=== PATIENT | male | born 1995 | race Caucasian/White ===

== ENCOUNTER 2019-01-21 07:58 | Inpatient (IN) ==
[2019-01-21 08:22] LABS: URINE SOURCE VOIDED
[2019-01-21 08:28] LABS: BILIRUBIN URINE NEGATIVE (NEGATIVE); BLOOD URINE NEGATIVE (NEGATIVE); COLOR YELLOW; GLUCOSE URINE NEGATIVE (NEGATIVE); KETONE URINE NEGATIVE (NEGATIVE); LEUKOCYTES URINE NEGATIVE (NEGATIVE); NITRITE URINE NEGATIVE (NEGATIVE); PH URINE 7.5; PROTEIN URINE NEGATIVE (NEGATIVE); SP GRAVITY URINE 1.009; TURBIDITY URINE CLEAR (CLEAR); UROBILINOGEN URINE NORMAL (NORMAL)
[2019-01-21 08:30] LABS: UR EPITHELIAL CELLS <10 /HPF (<10); URINE BACTERIA NEGATIVE /HPF; URINE RBC <10 /HPF (<10); URINE WBC <10 /HPF (<10)
[2019-01-21 08:31] LABS: BASO# 0.04 X1000 (0.0-0.2); BASO% 0.4 % (0.0-0.8); EOS# 0.17 X1000 (0.0-0.7); EOS% 1.6 % (0.0-10.0); HEMATOCRIT 46.2 % (42.0-52.0); HEMOGLOBIN 15.4 g/dL (14.0-18.0); IMM GRAN# 0.02 X1000 (0.0-0.04); IMM GRAN% 0.2 % (0.0-0.5); LYMPH% 21.1 % (20.5-51.1); MCH 24.3 PG (27-31); MCHC 33.3 g/dL (33-37); MONO# 0.72 X1000 (0.11-0.59); MONO% 6.9 % (1.7-9.3); MPV 10.7 FL (7.4-10.4); NEUT# 7.26 X1000 (1.4-6.5); NEUT% 69.8 % (42.2-75.2); PLT 292 X1000 (130-400); RBC 6.33 XMIL (4.7-6.1); RDW 13.7 % (11.5-14.5); WBC 10.41 X1000 (4.8-10.8)
[2019-01-21 08:40] LABS: AGAP 12; ALB/GLOB RATIO 1.6; ALBUMIN 4.7 g/dL (3.5-5.0); ALKALINE PHOSPHATASE 112 U/L (32-122); AMYLASE 48 U/L (20-200); BUN 8 mg/dL (8-22); CALCIUM 9.1 mg/dL (8.8-10.2); CHLORIDE 102 mmol/L (98-107); COSMO 282; CREATININE 0.9 mg/dL (0.7-1.2); ESTIMATED GFR > 60; GLUCOSE 110 mg/dL (70-104); GOT 12 U/L (10-34); GPT 10 U/L (10-44); LIPASE 24 U/L (13-60); POTASSIUM 3.8 mmol/L (3.5-5.1); SODIUM 142 mmol/L (136-145); TCO2 28 mmol/L (25-35); TOTAL BILIRUBIN 0.47 mg/dL (0.20-1.00); TOTAL PROTEIN 7.6 g/dL (6.3-8.3)
[2019-01-21] MEDS ORDERED: TORADOL IV ONE (09:07)
[2019-01-21] MEDS ORDERED: ZOFRAN IV ONE (09:07)
[2019-01-21] MEDS ORDERED: NS 1,000 ML IV ONE (09:07)
--- NOTE | 2019-01-21 09:22 | PROVIDER DOCUMENTATION ---
HPI-Abdominal Pain/GI Problem - General Chief Complaint: Abdominal Pain Stated Complaint: STOMACH PAIN/VOMITING Time Seen by Provider: 01/21/19 09:04 Allergies/Adverse Reactions: Patient Allergies Allergy/AdvReac Type Severity Reaction Status Date / Time cefdinir [From Omnicef] Allergy Intermediate SWELLING Verified 01/21/19 10:08 - History of Present Illness-ABD Nature of Presenting Problems: Patient reports sharp, non-radiating RUQ pain that woke him up at 5am. He also had 4 episodes of vomiting. Denies fever or diarrhea. States he was recently dx'd here with cholelithiasis. Severity in ED: reports: moderate Exposure to sick contacts?: No Dark Stools Present?: reports: none noticed Rectal Bleeding: reports: none Recently seen or treated by another doctor?: Yes Review of Systems - Adult - REVIEW OF SYSTEMS - ADULT Constitutional: reports: no symptoms reported Eyes: reports: no symptoms reported Ears, Nose, Mouth & Throat: reports: no symptoms reported Cardiovascular: reports: no symptoms reported Respiratory: reports: no symptoms reported Gastrointestinal: reports: see HPI Genitourinary: reports: no symptoms reported Musculoskeletal: reports: no symptoms reported Integumentary: reports: no symptoms reported Neurological: reports: no symptoms reported Psychiatric: reports: no symptoms reported Endocrine: reports: no symptoms reported Hematologic/Lymphatic: reports: no symptoms reported Allergic/Immunologic: reports: no symptoms reported All Other Systems: Reviewed and Negative Past History - Adult - PAST MEDICAL HISTORY-ADULT Review of Records: reports: Old Records Reviewed Major Childhood Illnesses: reports: denies history Cardiovascular: reports: denies history Respiratory: reports: denies history Gastrointestinal: reports: denies history Obstetrical/Gynecological: reports: denies history Genitourinary: reports: denies history Musculoskeletal: reports: denies history Neurological: reports: denies history Endocrine/Immune: reports: denies history Other Conditions: reports: denies history - PRIOR SURGERIES/PROCEDURES Surgical/Procedure History: reports: none - IMMUNIZATION STATUS Childhood Immunizations: See Nurse Assessment Flu Vaccine: See Nurse Assessment - FAMILY HISTORY Family History: reviewed, not pertinent Physical Exam-General - PHYSICAL EXAM-ADULT Initial Vital Signs Reviewed: Yes - CONSTITUTIONAL General Appearance: mild distress (due to pain) - EYES Eyes: PERRL/EOMI, pink conjunctivae. negative: scleral icterus - HEAD, EARS, NOSE, MOUTH & THROAT HENMT: normocephalic/atraumatic, moist mucous membranes, normal ENT inspection - NECK Neck: non-tender, full range of motion - RESPIRATORY Respiratory: chest non-tender, lungs clear, normal breath sounds, no pleuratic chest pain, no respiratory distress, no accessory muscle use - CARDIOVASCULAR Cardiovascular: normal peripheral pulses, regular rate, rhythm, no edema - GASTROINTESTINAL (ABDOMEN) Abdominal Exam: normal bowel sounds, guarding (ruq), tenderness (ruq), Osorio's sign. negative: non tender, rigid - LYMPHATIC Lymphatic: no adenopathy, axilla node tender - MUSCULOSKELETAL Back Exam: normal inspection, no CVA tenderness, no vertebral tenderness Extremity: normal range of motion, non-tender, normal inspection, no pedal edema - SKIN Integumentary: normal color, normal turgor, warm/dry. negative: jaundice, purpura, rash - NEUROLOGIC Neurologic: child care associate II-XII nml as tested, grossly normal, no motor/sensory deficits - PSYCHIATRIC Psych/Mental Status: normal mood/affect, normal thought content, normal thought process, oriented x 3 Progress - PLAN OF CARE/RESULTS Progress/Plan/Lab Results: Vital Signs - 8 hr 01/21/19 08:02 Temperature 97.8 F Pulse Rate 86 Respiratory Rate 18 Blood Pressure 158/103 O2 Sat by Pulse Oximetry 99 Laboratory Results - last 24 hr 01/21/19 01/21/19 01/21/19 08:06 08:11 08:11 WBC 10.41 RBC 6.33 H Hgb 15.4 Hct 46.2 MCV 73.0 L MCH 24.3 L MCHC 33.3 RDW Std Deviation 13.7 Plt Count 292 MPV 10.7 H Immature Gran % (Auto) 0.2 Neut % (Auto) 69.8 Lymph % (Auto) 21.1 [place] % (Auto) 6.9 Eos % (Auto) 1.6 Baso % (Auto) 0.4 Immature Gran # (Auto) 0.02 Neut # (Auto) 7.26 H Lymph # (Auto) 2.20 [place] # (Auto) 0.72 H Eos # (Auto) 0.17 Baso # (Auto) 0.04 Sodium 142 Potassium 3.8 Chloride 102 Carbon Dioxide 28 Anion Gap 12 BUN 8 Creatinine 0.9 Estimated GFR/1.73 m2 > 60 BUN/Creatinine Ratio 9 Glucose 110 H Calculated Osmolality 282 Calcium 9.1 Total Bilirubin 0.47 AST 12 ALT 10 Alkaline Phosphatase 112 Total Protein 7.6 Albumin 4.7 Globulin 2.9 Albumin/Globulin Ratio 1.6 Amylase 48 Lipase 24 Urine Source VOIDED Urine Color YELLOW Urine Turbidity CLEAR Urine pH 7.5 Ur Specific [place] 1.009 Urine Protein NEGATIVE Ur Glucose (Stick) NEGATIVE Ur Ketones (Stick) NEGATIVE Urine Blood NEGATIVE Urine Nitrite NEGATIVE Urine Bilirubin NEGATIVE Urobilinogen Dipstick NORMAL Urine Leukocytes NEGATIVE Urine WBC (Auto) <10 Urine RBC (Auto) <10 U Epithel Cells (Auto) <10 Urine Bacteria (Auto) NEGATIVE Orders Category Date Time Status US GB < RUQ (LIMITED) [US] Stat Exams 01/21/19 09:07 Ordered AMYLASE [CHEM] Stat Lab 01/21/19 08:11 Completed CBC WITH DIFF [HEME] Stat Lab 01/21/19 08:11 Completed COMPREHENSIVE METABOLIC PANEL [CHEM] Stat Lab 01/21/19 08:11 Completed LIPASE [CHEM] Stat Lab 01/21/19 08:11 Completed URINALYSIS [URINALYSIS] Stat Lab 01/21/19 08:06 Completed 0.9% Sodium Chloride Inj [Ns] 1,000 ml Med 01/21/19 09:07 Active IV 999 mls/hr Ketorolac [Toradol] Med 01/21/19 09:07 Discontinued 30 mg IV NOW ONE Ondansetron [Zofran] Med 01/21/19 09:07 Discontinued 4 mg IV NOW ONE Abd Pain/Abn Bleeding Stat Oth 01/21/19 08:06 Ordered Result Diagrams: 01/21/19 08:11 01/21/19 08:11 - REASSESSMENT Reassessment #1 Status: improving - CONSULTS/PCP/HOSPITALIST Notification #1 *Consult/PCP/Hospitalist*: Dr. Lorenzana Time Discussed: 12:38 Consult Disposition: Admit Departure - Departure Date of Disposition Decision: 01/21/19 Time of Disposition Decision: 12:38 DIAGNOSIS: Cholecystitis Disposition: ADMITTED INPATIENT 09 Certified Medical Emergency: Emergent Condition: Serious Referrals and Follow-Ups: None,PCP [Primary Care Provider] - - Critical Care Note This patient required my direct & personal management of CC.: Yes Attestation - Physician/ BITA Attestation Patient care was provided by Advanced Practice Provider:: No The physician spent face to face time with patient:: Yes Advanced Practice Provider documentation review:: Supervising physician onsite and consulted in the evaluation and care of this patient. The physician did have a face to face encounter with the patient.
--- NOTE | 2019-01-21 10:11 | Diag Imaging Result Doc PS360 ---
EXAM: US GB < RUQ (LIMITED) 01/21/2019 HISTORY: ruq pain TECHNIQUE: Right upper quadrant ultrasound COMMENT: The visualized portions of the aorta and inferior vena cava are within normal limits. The head and body of the pancreas are within normal limits. The liver is unremarkable. There is antegrade flow in the portal vein. There is no evidence of biliary dilatation the common bile duct measuring 6 mm. There is a 1.8 cm stone in the gallbladder. The gallbladder wall is slightly edematous in appearance and there is a positive sonographic Osorio sign. The right kidney is without evidence of hydronephrosis or mass. IMPRESSION: Cholelithiasis with cholecystitis. Electronically signed by Arsen Reece 01/21/2019 10:09 AM
[2019-01-21] MEDS ORDERED: ZOSYN 3.375 GM in NS 50 ML IV ONE (10:42)
[2019-01-21] MEDS ORDERED: DILAUDID IM STA (12:16)
[2019-01-21] MEDS ORDERED: DILAUDID IV ONE (12:24)
[2019-01-21] MEDS ORDERED: 1/2 NS 1,000 ML IV ONE (13:21)
[2019-01-21] MEDS: MORPHINE IV PRN ×2 (14:47→20:14)
--- NOTE | 2019-01-21 15:23 | HISTORY AND PHYSICAL ---
CHIEF COMPLAINT: Right upper quadrant pain, nausea and vomiting. HISTORY OF PRESENT ILLNESS: Mr. Staples is a 23-year-old gentleman who has had episodes of right upper quadrant pain for the past few months. For the past 5 days it has been especially severe, and this morning at 5 a.m. he was awakened with his worse attack ever. He came to the emergency department, and an ultrasound was done showing acute cholecystitis, there appears to be a stone in the neck of the gallbladder. Mr. Staples has an unremarkable past medical history. He says he has had asthma in the past but he takes no medications currently. He has not had any surgery before. FAMILY HISTORY: Noncontributory. MEDICATIONS: He takes no scheduled medications. ALLERGIES: He is allergic to Omnicef, which swells is face. SOCIAL HISTORY: He is about to start a job at [employer]. REVIEW OF SYSTEMS: Pertinent for the right upper quadrant pain, nausea and vomiting, but no fever. All of the subsystems are negative. PHYSICAL EXAMINATION: VITAL SIGNS: He is afebrile. Heart rate of 60, blood pressure 138/100, respiratory rate is 20. NECK: No cervical adenopathy. No thyroid masses are palpated. LUNGS: Lung sounds clear. HEART: Regular rate and rhythm. ABDOMEN: Soft. He has a positive Osorio's sign. EXTREMITIES: He does have multiple mosquito bite scars on his ankles. He has normal dorsalis pedis pulses. No peripheral edema. NEUROLOGIC: He is awake and alert. DIAGNOSTICS AND LABORATORIES: White count is 10,400, hemoglobin 15.4. LFTs are normal. His ultrasound shows a thickened gallbladder wall with a large stone. ASSESSMENT: Acute calculous cholecystitis. PLAN: I will plan to proceed with a laparoscopic cholecystectomy today. I have discussed the procedure and the benefits and risks. He understands and wants to proceed. cc: Francisco Lorenzana MD
[2019-01-21] MEDS ORDERED: LR 1,000 ML ONE (17:15)
[2019-01-21] MEDS ORDERED: SODIUM CHLORIDE 0.9% ONE (17:15)
[2019-01-21] MEDS ORDERED: MARCAINE 0.25% PF/EPI 1:200,000 ONE (17:15)
[2019-01-21] MEDS ORDERED: ZOSYN 3.375 GM in NS 50 ML IV SCH (18:30)
--- NOTE | 2019-01-21 18:38 | Diag Imaging Result Doc PS360 ---
OPERATIVE CHOLANGIOGRAM - 01/21/2019 INDICATION: CHOLECYSTITIS TECHNIQUE: The exam was performed by the patient's surgeon. Two images were obtained. COMPARISON: None FINDINGS: Contrast was infused into the cystic duct. This outlines a normal common bile duct. No stricture or filling defect. IMPRESSION: No complication. Electronically signed by Jeffrey Holt 01/21/2019 6:35 PM
[2019-01-21] MEDS ORDERED: ZOFRAN IV PRN (19:55)
[2019-01-21] MEDS: NORCO-7.5 PO PRN (21:42)
--- NOTE | 2019-01-22 00:19 | OPERATIVE NOTE ---
PROCEDURE DATE: 01/21/2019 PROCEDURE: Laparoscopic cholecystectomy with operative cholangiogram. SURGEON: Francisco Lorenzana MD REAL ESTATE CLOSING COORDINATOR: Marilee. PREOPERATIVE DIAGNOSIS: Acute and chronic calculous cholecystitis. POSTOPERATIVE DIAGNOSIS: Acute and chronic calculous cholecystitis. FINDINGS: The cholangiogram revealed a small common duct, but there was flow in the duodenum. No intraluminal filling defects were seen. DESCRIPTION OF PROCEDURE: After satisfactory general endotracheal anesthesia was achieved, the abdomen was prepped and draped in a sterile fashion. We anesthetized the skin at the base of the umbilicus and incised the skin. We carried our incision down to the fascia, scored the fascia and introduced an 11 trocar Optiview technique into the abdominal cavity. We insufflated through this trocar. Under direct visualization, we introduced a 5 trocar in midclavicular line, a 5 trocar near the anterior axillary line and an 11 mm trocar in the midepigastrium. We placed the patient in reverse Trendelenburg and turned him to the left. We grasped the fundus of the gallbladder, reflected it cephalad and began dissection at the triangle of [place]ot. We identified the cystic duct. We clipped it near its junction with the gallbladder. We incised the cystic duct and introduced a Brittany catheter. We shot the cholangiogram, and the findings above were noted. We then removed the cholangiogram catheter, clipped the cystic duct on the opposite side with a cystic ductotomy x2 and transected the cystic duct. The cystic artery was identified and clipped proximally x2, distally x1 and divided. The branch appeared to be present. We clipped it proximally x2, distally x1 and divided it. We then used the cautery spatula to dissect the gallbladder away from the liver. There was a lot of edema in the wall. We continued to dissect it until the gallbladder was completely freed from the liver. We then changed the videolaparoscope to the midepigastric trocar. We introduced an EndoCatch and placed the gallbladder within the bag. We delivered the gallbladder out of the abdominal cavity through the umbilical trocar site, after enlarging the fascial incision somewhat. We used a [place]-Sammie wound closure for the epigastric trocar site. We looked back. Hemostasis was satisfactory. We then desufflated and removed our trocars. We closed the fascia at the umbilicus under direct visualization with 2-0 Polysorb fascial stitches. We then closed the skin at each incision with 4-0 Polysorb subcuticular stitches. Sterile OpSite were applied. He tolerated it well and was sent to the recovery room in satisfactory condition. cc: Francisco Lorenzana MD
[2019-01-22] MEDS: MORPHINE IV PRN ×2 (03:41→09:58)
[2019-01-22] MEDS: NORCO-7.5 PO PRN ×2 (04:47→12:15)
[2019-01-22 08:54] VITALS: BP 137/99
--- NOTE | 2019-01-22 17:11 | GENERAL SURGERY PROGRESS NOTE ---
DATE: 01/22/2019 SUBJECTIVE: Mr. Staples is afebrile. Heart rate 67, blood pressure 137/99. He is taking liquids satisfactorily. PLAN: The plan will be discharge, write a prescription for some pain medicine and nausea. Diet and wound care and activity were discussed. He will return to see me in the office in 6 days. cc: Francisco Lorenzana MD
== END 2019-01-22 12:35 | disposition home or self-care (01) | DRG 419 ==
LOC: ED 07:58 → 4N 13:10
PROVIDERS: ADMIT Surgery; ATTEND Surgery
CPT/HCPCS: 74300; 76705; 80053; 81001; 82150; 83690; 85025; 88304; 96361; 96365; 96375; 99285; A9270; J1170; J1885; J2270; J2405; J2543; J7030; J7120; Q9966; Q9967; S0020